=== PATIENT | male | born 1945 | race Caucasian/White ===

== ENCOUNTER 2017-08-05 15:00 | Emergency (ER) | payer OTHER ==
[~2017-08-05] VITALS: Ht 160 cm; Wt 66.2 kg
[~2017-08-05 15:00] MED LIST: MOBIC15 MG PO
[2017-08-05 16:45] LABS: CALCIUM 8.4 mg/dL (8.5-10.1); POTASSIUM 3.6 mmol/L (3.5-5.1)
[2017-08-05 16:49] LABS: URIC ACID* 7.4 mg/dL (2.6-7.2)
[2017-08-05] MEDS ORDERED: HYDROCODONE-AP1 EAC6 PO (17:30)
[2017-08-05] MEDS ORDERED: INDOMETHACIN 5050 M1 PO (17:30)
== END 2017-08-05 17:54 | disposition home or self-care (01) ==
LOC: ER 15:00
PROVIDERS: Physician Assistant
DX: M10.9 Gout, unspecified (principal); M79.671 Pain in right foot; Z90.49 Acquired absence of other specified parts of digestive tract

== ENCOUNTER 2019-06-30 20:24 | Emergency (ER) | payer OTHER ==
[~2019-06-30] VITALS: Ht 160 cm; Wt 67.1 kg
[~2019-06-30 20:24] MED LIST changes: +HYDROCODONE-AP1 EAC6 PO; +INDOMETHACIN 5050 M1 PO
[2019-06-30 20:26] VITALS: BP 170/103
[2019-06-30] MEDS ORDERED: DOXYCYCLINE 10100 MG PO (21:43)
[2019-06-30] MEDS ORDERED: IBUPROFEN 600600 M1 PO (21:44)
== END 2019-06-30 22:05 | disposition home or self-care (01) ==
LOC: ER 20:24
DX: L03.116 Cellulitis of left lower limb (principal); Z90.49 Acquired absence of other specified parts of digestive tract

== ENCOUNTER 2020-12-18 13:02 | Emergency (ER) | payer OTHER ==
[~2020-12-18] VITALS: Ht 160 cm; Wt 64.9 kg
[~2020-12-18 13:02] MED LIST changes: +DOXYCYCLINE 10100 MG PO; +IBUPROFEN 600600 M1 PO
[2020-12-18 14:40] LABS: ABSOLUTE NEUTROPHILS 4.2 thou/uL (1.4-8.2); BASOPHILS 0.5 % (0.0-2.0); EOSINOPHILS 2.3 % (0.0-3.0); HEMOGLOBIN 13.1 gm/dL (14.0-18.0); LYMPHOCYTES 17.4 % (24.0-44.0); MCH 29.2 pg (26.0-34.0); MCHC 32.8 g/dL (28.0-37.0); MONOCYTES 6.5 % (1.0-8.0); PLATELET COUNT 233 thou/uL (150-400); POLYS 73.3 % (36.0-66.0); RBC 4.49 mil/uL (4.50-6.00); RDW 14.4 % (10.5-14.5); WBC 5.8 thou/uL (4.0-11.0)
[2020-12-18 14:53] LABS: CALCIUM 8.8 mg/dL (8.5-10.1); CREATININE 1.2 mg/dL (0.7-1.3); POTASSIUM 4.1 mmol/L (3.5-5.1)
--- NOTE | 2020-12-18 14:55 | EKG ---
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1945 Requested By: Jennifer Verdin Order Number: [id number] MD: Arvind Lennon Measurements Intervals [place] Rate: 79 P: 36 MD: 165 QRS: -24 QRSD: 93 T: -9 QT: 364 QTc: 418 Interpretive Statements Sinus rhythm Left ventricular hypertrophy Inferior infarct, 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
[2020-12-18 14:59] LABS: ALBUMIN 3.6 g/dL (3.4-5.0); TOTAL PROTEIN 6.9 g/dL (6.4-8.2)
[2020-12-18 15:31] LABS: URINE BILIRUBIN NEGATIVE (Negative); URINE BLOOD NEGATIVE (Negative); URINE CLARITY CLEAR; URINE COLOR YELLOW; URINE GLUCOSE-RANDOM* NEGATIVE (Negative); URINE KETONES NEGATIVE (Negative); URINE LEUKOCYTES-REFLEX NEGATIVE (Negative); URINE NITRITE-REFLEX NEGATIVE (Negative); URINE PROTEIN (DIPSTICK) NEGATIVE (Negative); URINE SPECIFIC GRAVITY 1.025 (1.005-1.035); URINE UROBILINOGEN 0.2 E.U./dl (0.2-1.0)
[2020-12-18 15:50] VITALS: BP 122/74
== END 2020-12-18 15:50 | disposition home or self-care (01) ==
LOC: ER 13:02
PROVIDERS: Physician Assistant
DX: R20.9 Unspecified disturbances of skin sensation (principal); Z79.1 Long term (current) use of non-steroidal anti-inflammatories (NSAID); Z79.2 Long term (current) use of antibiotics

== ENCOUNTER → 2021-01-08 | Outpatient (CLI) | payer OTHER ==
[2021-01-08 09:09] LABS: ABSOLUTE NEUTROPHILS 4.5 thou/uL (1.4-8.2); BASOPHILS 0.5 % (0.0-2.0); EOSINOPHILS 3.8 % (0.0-3.0); HEMATOCRIT 40.2 % (42.0-52.0); HEMOGLOBIN 13.4 gm/dL (14.0-18.0); MCH 30.1 pg (26.0-34.0); MCHC 33.3 g/dL (28.0-37.0); MCV 90.4 fL (80.0-100.0); MONOCYTES 7.1 % (1.0-8.0); PLATELET COUNT 230 thou/uL (150-400); POLYS 65.6 % (36.0-66.0); RBC 4.45 mil/uL (4.50-6.00); RDW 14.5 % (10.5-14.5); WBC 6.9 thou/uL (4.0-11.0)
[2021-01-08 09:32] LABS: CREATININE 0.9 mg/dL (0.7-1.3); POTASSIUM 3.6 mmol/L (3.5-5.1); TOTAL PROTEIN 7.5 g/dL (6.4-8.2)
== END ==
LOC: LAB 08:43
PROVIDERS: ATTEND Family Medicine
DX: N40.1 Benign prostatic hyperplasia with lower urinary tract symptoms (principal); R39.14 Feeling of incomplete bladder emptying; A40.9 Streptococcal sepsis, unspecified

== ENCOUNTER 2021-11-11 15:49 | Emergency (ER) | payer OTHER ==
[~2021-11-11] VITALS: Ht 160 cm; Wt 63.5 kg
[2021-11-11 16:29] LABS: ABSOLUTE NEUTROPHILS 6.5 thou/uL (1.4-8.2); BASOPHILS 1.1 % (0.0-2.0); EOSINOPHILS 0.7 % (0.0-3.0); HEMATOCRIT 44.9 % (42.0-52.0); HEMOGLOBIN 14.9 gm/dL (14.0-18.0); MCH 30.2 pg (26.0-34.0); MCHC 33.3 g/dL (28.0-37.0); MCV 90.9 fL (80.0-100.0); MONOCYTES 7.1 % (1.0-8.0); PLATELET COUNT 254 thou/uL (150-400); POLYS 72.1 % (36.0-66.0); RBC 4.93 mil/uL (4.50-6.00); RDW 13.3 % (10.5-14.5)
[2021-11-11 16:37] LABS: CALCIUM 9.1 mg/dL (8.5-10.1); CREATININE 0.9 mg/dL (0.7-1.3); POTASSIUM 3.6 mmol/L (3.5-5.1)
[2021-11-11 16:47] LABS: DIRECT BILIRUBIN 0.3 mg/dL (<0.1-0.2); TOTAL BILIRUBIN 1.6 mg/dL (0.2-1.0); TOTAL PROTEIN 7.3 g/dL (6.4-8.2)
[2021-11-11 20:44] LABS: URINE BILIRUBIN NEGATIVE (Negative); URINE BLOOD NEGATIVE (Negative); URINE CLARITY CLEAR; URINE COLOR YELLOW; URINE GLUCOSE-RANDOM* NEGATIVE (Negative); URINE KETONES TRACE (Negative); URINE LEUKOCYTES-REFLEX NEGATIVE (Negative); URINE NITRITE-REFLEX NEGATIVE (Negative); URINE PROTEIN (DIPSTICK) NEGATIVE (Negative); URINE SPECIFIC GRAVITY 1.015 (1.005-1.035); URINE UROBILINOGEN 0.2 E.U./dl (0.2-1.0)
[2021-11-11] MEDS ORDERED: MECLIZINE HCL25 M1 PO (21:56)
[2021-11-11 22:09] VITALS: BP 166/84
--- NOTE | 2021-11-12 08:10 | EKG ---
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 : 1945 Requested By: Guicho Apple Order Number: [id number] MD: Maksim Henslye Measurements Intervals [place] Rate: 71 P: 22 MO: 174 QRS: -20 QRSD: 97 T: -16 QT: 392 QTc: 426 Interpretive Statements Sinus rhythm Probable left atrial enlargement Left ventricular hypertrophy Borderline T abnormalities, inferior leads Compared to ECG 12/18/2020 13:52:18 Inferior Q waves are less prominent Electronically Signed On 11-12-2021 8:09:54 INTERNAL MEDICINE NURSE by Maksim Hensley [email or web address] <ELECTRONICALLY SIGNED> By: Maksim Hensley MD, [facility] 11/12/21 0809 1649 Maksim Hensley MD, [facility] /EPI
== END 2021-11-11 22:10 | disposition home or self-care (01) ==
LOC: ER 15:49
PROVIDERS: Student in an Organized Health Care Education/Training Program
DX: R42 Dizziness and giddiness (principal); Z20.822 Contact with and (suspected) exposure to COVID-19; Z90.49 Acquired absence of other specified parts of digestive tract